=== PATIENT | male | born 1955 | race Caucasian/White ===

== ENCOUNTER 2018-08-20 13:37 | Outpatient (CLI) | payer BC ==
--- NOTE | 2018-08-20 16:08 | RAD ---
PA AND LATERAL CHEST: HISTORY: Cough. Congestion. FINDINGS: Heart size is normal. Lungs are expanded without focal areas of consolidation, pneumothoraces, or pl eural effusions. No acute osseous abnormalities are seen. IMPRESSION: No radiographic evidence of acute cardiopulmonary process. POS: OFF
== END 2018-08-20 13:38 | disposition home or self-care (01) ==
LOC: SCSRAD 13:37
PROVIDERS: ATTEND Family Medicine
DX: R05 Cough (principal)
CPT/HCPCS: 71046

== ENCOUNTER 2018-10-12 14:17 | Emergency (ER) | payer BC ==
[~2018-10-12 14:17] MED LIST: ISOVUE-370 76%-LOCM 1 ML ONE
[2018-10-12 15:33] LABS: #Eosinphils 0.2 thou/uL (0.0-0.7); #Lymphocytes 2.5 thou/uL (1.20-3.40); #Monocytes 1.2 thou/uL (0.11-0.59); #Neutrophils 9.4 thou/uL (1.40-6.50); %Basophils 0.1 % (0.0-1.0); %Eosinophils 1.2 % (0.0-10.0); %Lymphocytes 18.7 % (21.0-51.0); %Monocytes 9.4 % (0.0-10.0); %Neutrophils 70.7 % (42.0-75.0); Hemoglobin 15.6 g/dL (14.0-18.0); Mean Corpuscular HGB CONC 33.6 g/dL (32.0-36.0); Mean Corpuscular Hemoglobin 28.8 pg (27.0-31.0); Mean Corpuscular Volume 85.7 fL (78.0-98.0); Mean Platelet Volume 6.7 fL (7.4-10.4); Platelet Count 272 thou/uL (130-400); RBC Distribution Width 13.3 % (11.5-14.5); Red Blood Cell (RBC) Count 5.41 mill/uL (4.70-6.10); White Blood Cell (WBC) Count 13.2 thou/uL (4.8-10.8)
[2018-10-12 15:35] LABS: PTT 28.8 SEC (22.9-36.1); Prothrombin Time 13.5 SEC (12.0-14.7)
[2018-10-12 15:53] LABS: ALT (SGPT) 13 U/L (8-55); AST (SGOT) 25 U/L (5-34); Albumin 4.5 g/dL (3.4-4.8); Alkaline Phosphatase 75 U/L (40-150); Anion Gap 11 mmol/L (10-20); BUN (Urea Nitrogen) 18 mg/dL (8.4-25.7); Bilirubin, Total 0.8 mg/dL (0.2-1.2); Calc. Creatinine Clearance 0 mL/min (70-130); Carbon Dioxide 30 mmol/L (23-31); Chloride 104 mmol/L (98-107); Estimated GFR-MDRD 53; Globulin 3.1 g/dL (2.4-3.5); Glucose 96 mg/dL (80-115); Potassium 4.1 mmol/L (3.5-5.1); Protein, Total 7.6 g/dL (5.8-8.1); Sodium 141 mmol/L (136-145)
[2018-10-12] MEDS ORDERED: Ondansetron PF 4 MG/2 ML Vial ONE ×2 (16:21→16:22)
--- NOTE | 2018-10-12 16:40 | CT ---
ABDOMEN AND PELVIC CT SCAN WITH IV CONTRAST: Date: 10/12/18 HISTORY: Abdominal pain, hematochezia, vomiting. FINDINGS: Tiny granuloma calcification left chest. The liver, gallbladder, pancreas, spleen, and adrenal glands are unremarkable. Several small renal hy podensities, statistically small cysts. No renal calculus or acute obstruction. Abnormal wall thic kening with some pericolonic fat stranding involving the distal transverse colon, splenic flexure, an d upper left colon, evidence for nonspecific colitis. There is occasional diverticulosis in the sigmo id colon, but no discrete diverticula in the area of abnormal colon, and this is a very long segment to be considered diverticulitis. No CT evidence for acute appendicitis. No evidence for extraluminal gas. No free intraperitoneal air. No abscess or abnormal fluid collection. IMPRESSION: Long segment of abnormal colonic wall thickening and pericolonic fat stranding involving the distal t ransverse colon, splenic flexure, and upper left colon, evidence for nonspecific colitis. Small renal hypodensities, statistically small cysts. Bilateral fat-containing inguinal hernias. Other findings as above. No other significant acute process. POS: TPC
[2018-10-12] MEDS ORDERED: metroNIDAZOLE 500 MG in Premix Bag 1 BAG IVPB SCH (17:15)
== END 2018-10-12 19:22 | disposition home or self-care (01) ==
LOC: ERS 14:17
DX: K52.9 Noninfective gastroenteritis and colitis, unspecified (principal); K92.1 Melena; E78.5 Hyperlipidemia, unspecified; I10 Essential (primary) hypertension
CPT/HCPCS: 74177; 80053; 85025; 85610; 85730; 86850; 86900; 86901; 96361; 96365; 96366; 96368; 96375; J0744; J2405; Q9966

== ENCOUNTER 2019-10-07 13:54 | Outpatient (CLI) | payer BC ==
--- NOTE | 2019-10-07 14:21 | RAD ---
EXAM: Chest PA and lateral: HISTORY: Bronchitis COMPARISON: 08/20/2018 FINDINGS: Heart: Normal cardiac silhouette Aorta: Unremarkable Pulmonary vessels: Normal Costophrenic angles: Costophrenic angles are clear. Lungs: No consolidation or masses. Pneumothorax: No pneumothorax Osseous structures: No osseous abnormalities IMPRESSION: No acute cardiopulmonary process.
== END 2019-10-07 13:55 | disposition home or self-care (01) ==
LOC: SCSRAD 13:54
PROVIDERS: ATTEND Nurse Practitioner Family
DX: J40 Bronchitis, not specified as acute or chronic (principal)
CPT/HCPCS: 71046

== ENCOUNTER 2020-12-30 10:54 | Outpatient (CLI) | payer BC | END 2020-12-30 10:55 | disposition home or self-care (01) | LOC: SCSRAD 10:54 | PROVIDERS: ATTEND Family Medicine | DX: Z47.89 Encounter for other orthopedic aftercare (principal); Z98.1 Arthrodesis status; M47.812 Spondylosis without myelopathy or radiculopathy, cervical region | CPT/HCPCS: 72040 ==

== ENCOUNTER 2021-01-21 13:22 | Outpatient (CLI) | payer BC | END 2021-01-21 13:23 | disposition home or self-care (01) | LOC: SCSRAD 13:22 | PROVIDERS: ATTEND Family Medicine | DX: Z47.89 Encounter for other orthopedic aftercare (principal); Z98.1 Arthrodesis status | CPT/HCPCS: 72040 ==

== ENCOUNTER 2021-03-04 09:25 | Outpatient (CLI) | payer BC ==
[2021-03-04 11:28] LABS: #Eosinphils 0.2 10x3/uL (0.0-0.5); #Monocytes 0.6 10x3/uL (0.0-1.1); %Basophils 0.5 % (0.0-2.0); %Eosinophils 2.7 % (0.0-6.0); %Lymphocytes 35.9 % (18.0-47.0); %Monocytes 9.7 % (0.0-10.0); Hemoglobin 13.8 g/dL (13.5-17.5); Mean Corpuscular HGB CONC 33.7 g/dL (32.0-36.0); Mean Corpuscular Hemoglobin 27.3 pg (27.0-33.0); Mean Corpuscular Volume 81.2 fl (81.2-95.1); Mean Platelet Volume 9.1 fl (7.4-10.4); Platelet Count 230 10x3/uL (150-450); RBC Distribution Width 15.8 % (11.5-14.5); Red Blood Cell (RBC) Count 5.05 10x6/uL (4.32-5.72); White Blood Cell (WBC) Count 5.9 10x3/uL (3.5-10.5)
== END 2021-03-04 09:26 | disposition home or self-care (01) ==
LOC: LABBT 09:25
PROVIDERS: ATTEND Orthopaedic Surgery Hand Surgery
DX: Z01.818 Encounter for other preprocedural examination (principal); G56.22 Lesion of ulnar nerve, left upper limb; G56.02 Carpal tunnel syndrome, left upper limb
CPT/HCPCS: 85025; 93005; 93010

== ENCOUNTER 2021-03-09 09:54 | Observation (INO) | payer BC ==
[2021-03-04 11:47] VITALS: BMI 33.5
[2021-03-09] MEDS ORDERED: Betamet Acet/Betamet Na Ph 30 MG/5 ML VIAL ONE ×2 (12:28→12:32)
[2021-03-09] MEDS ORDERED: Neomycin-Polymyxin 1 ML AMP ONE ×2 (12:28→12:32)
[2021-03-09] MEDS ORDERED: Bupivacaine PF 0.5% 30 ML VIAL ONE ×3 (12:28→16:18)
[2021-03-09] MEDS ORDERED: Bacitracin Zinc Ointment 30 gm TUBE ONE ×2 (12:28→12:32)
[2021-03-09] MEDS ORDERED: Fentanyl 100 MCG/2 ML VIAL ONE ×2 (12:34→17:02)
[2021-03-09] MEDS ORDERED: Phenylephrine 10 MG/ML VIAL ONE (12:35)
[2021-03-09] MEDS ORDERED: Lidocaine 1% PF 5 ML VIAL ONE (12:58)
[2021-03-09] MEDS ORDERED: Dexamethasone 20 MG/5 ML VIAL ONE (12:58)
[2021-03-09] MEDS ORDERED: Ondansetron PF 4 MG/2 ML Vial ONE (12:58)
[2021-03-09] MEDS ORDERED: PHENYLEPHRINE-NS 100 MCG/ML 10 ML SYRINGE ONE (12:58)
[2021-03-09] MEDS ORDERED: Ketorolac Tromethamine 30 MG/ML VIAL ONE (17:32)
[2021-03-10] MEDS ORDERED: Morphine 2 MG/ML VIAL SLOW IVP PRN ×2 (00:08→10:03)
[2021-03-10] MEDS ORDERED: Ondansetron ODT 4 MG TAB PO PRN (00:09)
[2021-03-10] MEDS ORDERED: HYDROcodone/Acetaminophen 5/325 mg Tablet PO PRN ×2 (00:09→10:03)
[2021-03-10] MEDS ORDERED: Acetaminophen 325 MG TAB PO PRN (00:09)
[2021-03-10] MEDS ORDERED: Ondansetron PF 4 MG/2 ML Vial IVP PRN (00:09)
[2021-03-10] MEDS ORDERED: Sodium Chloride 0.9% 1,000 ML IV SCH (00:30)
[2021-03-10 05:02] LABS: #Lymphocytes 1.6 thou/uL (1.20-3.40); #Monocytes 0.6 thou/uL (0.11-0.59); #Neutrophils 11.6 thou/uL (1.40-6.50); %Eosinophils 0.2 % (0.0-10.0); %Lymphocytes 11.3 % (21.0-51.0); %Monocytes 4.3 % (0.0-10.0); %Neutrophils 84.2 % (42.0-75.0); Hemoglobin 13.1 g/dL (14.0-18.0); Mean Corpuscular HGB CONC 34.9 g/dL (32.0-36.0); Mean Corpuscular Hemoglobin 29.2 pg (27.0-31.0); Mean Corpuscular Volume 83.6 fL (78.0-98.0); Mean Platelet Volume 6.9 fL (7.4-10.4); Platelet Count 264 thou/uL (130-400); RBC Distribution Width 14.6 % (11.5-14.5); Red Blood Cell (RBC) Count 4.48 mill/uL (4.70-6.10); White Blood Cell (WBC) Count 13.8 thou/uL (4.8-10.8)
[2021-03-10 05:27] LABS: Anion Gap 14 mmol/L (10-20); BUN (Urea Nitrogen) 18 mg/dL (8.4-25.7); Calc. Creatinine Clearance 88 mL/min (70-130); Calcium 9.2 mg/dL (7.8-10.44); Carbon Dioxide 22 mmol/L (23-31); Chloride 106 mmol/L (98-107); Glucose 135 mg/dL (80-115); Potassium 4.6 mmol/L (3.5-5.1); Sodium 137 mmol/L (136-145)
[2021-03-10] MEDS ORDERED: Aspirin 325 mg Enteric Coated Tablet PO SCH ×2 (09:00)
[2021-03-10] MEDS ORDERED: Lisinopril 10 MG TAB PO SCH ×2 (09:00)
[2021-03-10 11:42] VITALS: BP 117/56; TEMP 98
[2021-03-10] MEDS ORDERED: Ibuprofen 200 MG TAB PO SCH (15:00)
[2021-03-10] MEDS ORDERED: Atorvastatin Calcium 10 MG TAB PO SCH ×2 (21:00)
[2021-03-10] MEDS ORDERED: Fish Oil 1,000 MG CAP PO SCH ×2 (21:00)
[2021-03-11] MEDS ORDERED: Aspirin 81 mg Enteric Coated Tablet PO SCH (09:00)
== END 2021-03-10 13:35 | disposition home or self-care (01) ==
LOC: SDC 09:54 → 2NO 20:40 → UNDODISOB 21:35
PROVIDERS: ADMIT Orthopaedic Surgery Hand Surgery; ATTEND Orthopaedic Surgery Hand Surgery
PROC: 01N50ZZ Release Median Nerve, Open Approach (ICD-10-PCS; principal; 2021-03-09)
PROC: 01N40ZZ Release Ulnar Nerve, Open Approach (ICD-10-PCS; 2021-03-09)
PROC: 0MB40ZZ Excision of Left Elbow Bursa and Ligament, Open Approach (ICD-10-PCS; 2021-03-09)
PROC: 01N40ZZ Release Ulnar Nerve, Open Approach (ICD-10-PCS; 2021-03-09)
DX: G56.03 Carpal tunnel syndrome, bilateral upper limbs (principal); M70.22 Olecranon bursitis, left elbow; G56.23 Lesion of ulnar nerve, bilateral upper limbs; M24.512 Contracture, left shoulder; M19.011 Primary osteoarthritis, right shoulder; M19.012 Primary osteoarthritis, left shoulder; M65.321 Trigger finger, right index finger; M65.331 Trigger finger, right middle finger; I25.2 Old myocardial infarction; E78.5 Hyperlipidemia, unspecified; I12.9 Hypertensive chronic kidney disease with stage 1 through stage 4 chronic kidney disease, or unspecified chronic kidney disease; N18.9 Chronic kidney disease, unspecified; R42 Dizziness and giddiness; I35.0 Nonrheumatic aortic (valve) stenosis; E66.9 Obesity, unspecified; Z68.33 Body mass index [BMI] 33.0-33.9, adult; Z79.82 Long term (current) use of aspirin; Z79.899 Other long term (current) drug therapy; Z98.1 Arthrodesis status
CPT/HCPCS: 36415; 71045; 80048; 85025; 88304; 93005; 93010; G0378; J0690; J0702; J1100; J1885; J2370; J2405; J3010; S0020